=== PATIENT | female | born 1950 | race Caucasian/White ===

== ENCOUNTER 2022-06-15 13:12 | Outpatient (CLI) | payer MEDICARE | END 2022-06-15 13:13 | disposition home or self-care (01) | LOC: ULT 13:12 | PROVIDERS: ATTEND Nurse Practitioner Family | DX: I83.11 Varicose veins of right lower extremity with inflammation (principal); I83.12 Varicose veins of left lower extremity with inflammation; M79.604 Pain in right leg; M79.605 Pain in left leg | CPT/HCPCS: 93923; 93970 ==